=== PATIENT | male | born 1985 | race Asian ===

== ENCOUNTER 2020-03-15 15:16 | Emergency (ER) | payer BC ==
[~2020-03-15] VITALS: Ht 170.2 cm; Wt 98.0 kg
--- NOTE | 2020-03-15 15:17 | NUR ---
[email or web address], from healthcare interpreter, had seizure episode, winessed for 3 mins per report, back of the head bump, BS 131, -KO, to ER bed 11, hooked to monitor, seizure precautions applied. changed to hosp gown, warm blanket provided, awaiting MD [place]
[2020-03-15] MEDS ORDERED: IV NS 0.9% 1,000 ML BAG IV ONE (15:30)
--- NOTE | 2020-03-15 15:35 | NUR ---
ASSOCIATE PROFESSOR OF PHYSICS AT BEDSIDE
--- NOTE | 2020-03-15 15:42 | NUR ---
URINE SAMPLE COLLECTED AND SENT TO LAB
[2020-03-15 15:47] LABS: CALCIUM, SERUM 9.4 mg/dL (8.5-10.1); CARBON DIOXIDE 19 mmol/L (21-32); CHLORIDE 98 mmol/L (98-107); CREATININE 1.2 mg/dL (0.6-1.3); GLUCOSE 141 mg/dL (74-106); POTASSIUM 3.9 mmol/L (3.5-5.1); SODIUM SERUM 136 mmol/L (136-145); UREA NITROGEN, BLOOD 15 mg/dL (7-18)
[2020-03-15 15:48] LABS: BASOPHILS % (AUTO) 0.4 % (0.0-2.0); EOSINOPHILS % (AUTO) 1.6 % (0.0-6.0); HEMATOCRIT 45 % (39-51); HEMOGLOBIN 14.1 g/dL (13.5-17.5); LYMPHOCYTES # (AUTO) 4.9 /CMM (0.8-4.8); MEAN CORPUSCULAR HGB CONC 31 g/dl (31.0-36.0); MEAN CORPUSCULAR VOLUME 67 fL (80-96); MONOCYTES # (AUTO) 0.7 /CMM (0.1-1.30); MONOCYTES % (AUTO) 7.2 % (2.0-12.0); NEUTROPHILS % (AUTO) 40.8 % (43.0-81.0); PLATELET COUNT (AUTO) 257 /CMM (150-450); RED BLOOD CELL COUNT(AUTO) 6.79 MIL/uL (4.5-6.0); WHITE BLOOD COUNT (AUTO) 9.8 K/uL (4.3-11.0)
--- NOTE | 2020-03-15 15:48 | NUR ---
PICKED UP BY MAYNOR BEAVER VIA [facility] FOR CT SCAN
[2020-03-15 15:53] LABS: ALANINE AMINOTRANSFERASE 80 U/L (12-78); ALBUMIN 4.4 g/dL (3.4-5.0); ALKALINE PHOSPHATASE 94 U/L (46-116); ASPARTATE AMINOTRANSFERASE 41 U/L (15-37); BILIRUBIN,DIRECT 0.1 mg/dL (0.0-0.2); BILIRUBIN,TOTAL 0.5 mg/dL (0.2-1.0)
[2020-03-15 15:58] LABS: ALCOHOL, BLOOD < 3 mg/dL (0-0)
[2020-03-15 16:34] LABS: EOSINOPHILS % (MANUAL) 2 % (0-4); LYMPHOCYTES % (MANUAL) 40 % (16-48); MONOCYTES % (MANUAL) 9 % (0-11.0); NEUTROPHILS % (MANUAL) 45 (42-76); REACTIVE LYMPHOCYTES 4 % (0-0)
--- NOTE | 2020-03-15 17:03 | NUR ---
Corrine boothchristina in [facility] - 03/15/20 at 1714 by TRAM patient stated "had my last seizure 2007, no medications taken, then this"
--- NOTE | 2020-03-15 17:13 | NUR ---
patient stated "had my last seizure 2007, no medications taken, then this happened", made MD aware
[2020-03-15 17:31] VITALS: BP 167/75
--- NOTE | 2020-03-15 17:31 | NUR ---
IV removed. Catheter intact and site benign. Pressure and 4x4 applied to site. No bleeding noted.Patient discharged to home in stable condition. Written and verbal after care instructions given. Patient verbalizes understanding of instruction.
== END 2020-03-15 17:32 | disposition home or self-care (01) ==
LOC: ER 15:17
DX: S00.83XA Contusion of other part of head, initial encounter (principal); R56.9 Unspecified convulsions; I10 Essential (primary) hypertension; R79.9 Abnormal finding of blood chemistry, unspecified; X58.XXXA Exposure to other specified factors, initial encounter; Y93.89 Activity, other specified; Y92.89 Other specified places as the place of occurrence of the external cause; Y99.8 Other external cause status
CPT/HCPCS: 36415; 70450; 80048; 80076; 80305; 80307; 83735; 85025; 85730; 93005; 99285; J7030; G0480